=== PATIENT | female | born 1940 | race Caucasian/White ===

== ENCOUNTER 2018-05-24 13:40 | Inpatient (IN) | payer MEDICARE, OTHER ==
[~2018-05-24] VITALS: Ht 157.5 cm; Wt 39.1 kg
[2018-05-24 14:04] LABS: BASOPHILS % (AUTO) 0.3 % (0-1); EOSINOPHILS # (AUTO) 0.1 X10'3 (0-0.9); EOSINOPHILS % (AUTO) 1.4 % (0-6); HEMATOCRIT 41.2 % (35.0-45.0); HEMOGLOBIN 14.3 g/dl (12.0-16.0); LYMPHOCYTES # (AUTO) 1.6 X10'3 (1.1-4.8); LYMPHOCYTES % (AUTO) 18.6 % (21-51); MEAN CORPUSCULAR HEMOGLOBIN 34.4 PG (27.0-31.0); MEAN CORPUSCULAR HGB CONC 34.7 % (33.0-36.5); MEAN CORPUSCULAR VOLUME 99.2 FL (78-98); MEAN PLATELET VOLUME 7.7 FL (7.4-10.4); MONOCYTES # (AUTO) 0.8 X10'3 (0-0.9); NEUTROPHILS # (AUTO) 6.3 X10'3 (1.8-7.7); NEUTROPHILS % (AUTO) 70.7 % (42-75); PLATELET COUNT 259 X10'3 (140-440); RED BLOOD COUNT 4.16 X10'6 (4.20-5.60); RED CELL DISTRIBUTION WIDTH 13.6 % (11.5-14.5); WHITE BLOOD COUNT 8.9 X10'3 (4.5-11.0)
[2018-05-24] MEDS ORDERED: normal saline 1000ml 1,000 ML IV ONE (14:05)
[2018-05-24] MEDS ORDERED: atropine 1 MG/1 ML vial IV ONE ×2 (14:05)
[2018-05-24] MEDS ORDERED: DOBUTamine-DoBUTrex 500mg/D5W 250 ML IV SCH (14:05)
[2018-05-24 14:14] LABS: PARTIAL THROMBOPLASTIN TIME 28 SECONDS (22-32); PROTHROMBIN TIME 10.2 SECONDS (9.0-12.0)
[2018-05-24 14:27] LABS: ALANINE AMINOTRANSFERASE 31 U/L (12-78); ALBUMIN/GLOBULIN RATIO 1.4 (1.1-1.5); ALKALINE PHOSPHATASE 67 IU/L (46-116); ANION GAP 5 (8-16); ASPARTATE AMINO TRANSFERASE 31 U/L (10-37); BILIRUBIN,TOTAL 0.7 MG/DL (0.1-1.0); BLOOD UREA NITROGEN 10 MG/DL (7-18); CALCIUM 9.9 MG/DL (8.5-10.1); CHLORIDE 100 MMOL/L (99-107); CREATININE 0.91 MG/DL (0.40-0.90); GLUCOSE 107 MG/DL (70-104); POTASSIUM 4.7 MMOL/L (3.5-5.1); SODIUM 134 MMOL/L (135-145); TOTAL CARBON DIOXIDE 29.3 MMOL/L (24-32); TOTAL PROTEIN 6.9 G/DL (6.4-8.2); eGFR 60 ML/MIN
[2018-05-24] MEDS ORDERED: BIOT10005 PO (14:48)
[2018-05-24] MEDS ORDERED: CELE-193 PO (14:48)
[2018-05-24] MEDS ORDERED: GABA-532 PO (14:48)
[2018-05-24] MEDS ORDERED: CARSR60C PO (14:48)
[2018-05-24] MEDS ORDERED: METO50TA16 PO (14:48)
[2018-05-24] MEDS ORDERED: MULT1TAB74 PO (14:48)
[2018-05-24] MEDS ORDERED: BACL10TA PO (14:48)
[2018-05-24] MEDS ORDERED: SYN0.088T PO (14:48)
[2018-05-24] MEDS ORDERED: DOPamine 400mg/D5W 250ml 250 ML IV SCH (15:25)
[2018-05-24] MEDS ORDERED: acetaminophen 325mg tablet PO PRN ×2 (17:50)
[2018-05-24] MEDS ORDERED: HYDROcodone/acetaminophen 5mg/325mg tablet PO PRN (17:50)
[2018-05-24] MEDS ORDERED: magnesium hydroxide 30ml (MOM) UD suspension PO PRN (17:50)
[2018-05-24] MEDS ORDERED: mag hydrox/Alum hydrox/simeth 30ml oral suspension PO PRN (17:50)
[2018-05-24] MEDS ORDERED: ondansetron/PF 4mg/2ml inj IV PRN (17:50)
[2018-05-24] MEDS ORDERED: HYDROcodone/acetaminophen 10/325mg tab PO PRN (17:50)
[2018-05-24 19:00] VITALS: BP 154/66
[2018-05-24] MEDS: heparin, porcine 5000 units/ml vial SQ SCH (20:14)
[2018-05-24] MEDS ORDERED: gabapentin 300mg capsule PO SCH (21:00)
[2018-05-24] MEDS ORDERED: temazepam 15mg capsule PO PRN (21:00)
[2018-05-24] MEDS ORDERED: gabapentin 300mg capsule PO ONE (22:15)
[2018-05-24 23:00] VITALS: BP 107/53
[2018-05-25 02:05] LABS: ALBUMIN 3.3 G/DL (3.4-5.0); ANION GAP 5 (8-16); BLOOD UREA NITROGEN 14 MG/DL (7-18); BUN/CREATININE RATIO 18.4 (6.6-38.0); CALCIUM 8.8 MG/DL (8.5-10.1); CHLORIDE 105 MMOL/L (99-107); CREATININE 0.76 MG/DL (0.40-0.90); GLUCOSE 78 MG/DL (70-104); POTASSIUM 4.1 MMOL/L (3.5-5.1); SODIUM 139 MMOL/L (135-145); TOTAL CARBON DIOXIDE 28.9 MMOL/L (24-32); eGFR 74 ML/MIN
[2018-05-25 02:10] LABS: BASOPHILS % (AUTO) 0.1 % (0-1); EOSINOPHILS # (AUTO) 0.1 X10'3 (0-0.9); HEMATOCRIT 36.6 % (35.0-45.0); HEMOGLOBIN 12.4 g/dl (12.0-16.0); LYMPHOCYTES # (AUTO) 1.6 X10'3 (1.1-4.8); LYMPHOCYTES % (AUTO) 27.6 % (21-51); MEAN CORPUSCULAR HEMOGLOBIN 33.8 PG (27.0-31.0); MEAN CORPUSCULAR HGB CONC 33.8 % (33.0-36.5); MEAN CORPUSCULAR VOLUME 99.8 FL (78-98); MEAN PLATELET VOLUME 8.2 FL (7.4-10.4); MONOCYTES # (AUTO) 0.6 X10'3 (0-0.9); MONOCYTES % (AUTO) 9.8 % (2-12); NEUTROPHILS # (AUTO) 3.6 X10'3 (1.8-7.7); NEUTROPHILS % (AUTO) 61.5 % (42-75); PLATELET COUNT 227 X10'3 (140-440); RED BLOOD COUNT 3.67 X10'6 (4.20-5.60); RED CELL DISTRIBUTION WIDTH 13.5 % (11.5-14.5); WHITE BLOOD COUNT 5.9 X10'3 (4.5-11.0)
[2018-05-25 03:00] VITALS: BP 149/73
[2018-05-25 06:00] VITALS: BP 141/64
[2018-05-25] MEDS ORDERED: levoTHYROXINE 88mcg tablet PO SCH (07:00)
[2018-05-25] MEDS: heparin, porcine 5000 units/ml vial SQ SCH (08:35)
[2018-05-25 11:00] VITALS: BP 159/70
[2018-05-25] MEDS ORDERED: lisinopril 10 MG tablet PO ONE (11:25)
[2018-05-25 15:00] VITALS: BP 141/78
[2018-05-25] MEDS ORDERED: METO-395 PO (15:24)
[2018-05-25] MEDS ORDERED: LISI10TA4 PO (15:24)
[2018-05-25] MEDS ORDERED: gabapentin 300mg capsule PO SCH (21:00)
== END 2018-05-25 17:25 | disposition home or self-care (01) | DRG 316 ==
LOC: ER 13:42 → ED HOLD 17:46 → PCU 3S 18:50
PROVIDERS: ADMIT Internal Medicine; ATTEND Internal Medicine
DX: I95.9 Hypotension, unspecified (principal); I49.5 Sick sinus syndrome; E03.9 Hypothyroidism, unspecified; G89.4 Chronic pain syndrome; I10 Essential (primary) hypertension; I25.10 Atherosclerotic heart disease of native coronary artery without angina pectoris; I49.9 Cardiac arrhythmia, unspecified; E78.5 Hyperlipidemia, unspecified; R42 Dizziness and giddiness; I07.1 Rheumatic tricuspid insufficiency; Z88.5 Allergy status to narcotic agent; Z88.1 Allergy status to other antibiotic agents; Z79.899 Other long term (current) drug therapy
CPT/HCPCS: 36415; 71045; 80048; 80053; 84443; 84484; 85025; 85610; 85730; 87070; 93005; 97116; 97161; J0461; J1250; J1265; J1644; J7030